=== PATIENT | female | born 1975 | race Caucasian/White ===

== ENCOUNTER 2018-05-03 14:42 | Inpatient (IN) | payer OTHER ==
[~2018-05-03] VITALS: Ht 170.2 cm; Wt 54.4 kg
[2018-05-03] MEDS ORDERED: SODIUM CHLORIDE 0.9% 1,000 ML IV ONE (14:49)
[2018-05-03] MEDS ORDERED: ONDANSETRON 2MG/ML, 2ML IVPush ONE (15:00)
[2018-05-03] MEDS ORDERED: METOCLOPRAMIDE 5 MG/ML, 2ML ONE (15:00)
[2018-05-03] MEDS ORDERED: SODIUM CHLORIDE FLUSH 10ML SYR IVF ONE (15:00)
[2018-05-03] MEDS ORDERED: SODIUM CHLORIDE 0.9% 1,000ML IVBOLUS ONE (15:00)
[2018-05-03 15:50] LABS: ALANINE AMINOTRANSFERASE 19 U/L (12-78); ALBUMIN 2.3 g/dL (3.4-5.0); ANION GAP 11 mmol/L (5-15); CALCIUM 8.4 mg/dL (8.5-10.1); CHLORIDE 94 mmol/L (98-107); CREATININE 0.91 mg/dL (0.55-1.02)
[2018-05-03 15:52] LABS: ALKALINE PHOSPHATASE 292 U/L (45-117); BILIRUBIN,TOTAL 0.9 mg/dL (0.2-1.0); TOTAL PROTEIN 7.9 g/dL (6.4-8.2)
[2018-05-03 16:25] LABS: BASOPHILS % (AUTO) 0 % (0-1); EOSINOPHILS % (AUTO) 0 % (1-7); LYMPHOCYTES # (AUTO) 0.78 x10^3/uL (1-3.4); LYMPHOCYTES % (AUTO) 58 % (22-44); MD MORPH REVIEW ONLY; MEAN CORPUSCULAR HEMOGLOBIN 36.1 pg (27.0-34.8); MEAN CORPUSCULAR HGB CONC 35.4 g/dL (32.4-35.8); MEAN PLATELET VOLUME 8.7 fL (7.4-10.4); MONOCYTES # (AUTO) 0.11 x10^3/uL (0.2-0.8); MONOCYTES % (AUTO) 8 % (2-9); NEUTROPHILS # (AUTO) 0.45 x10^3/uL (1.8-6.8); NEUTROPHILS % (AUTO) 34 % (42-75); PLATELET COUNT 182 x10^3/uL (130-400); RED BLOOD COUNT 2.66 x10^6/uL (3.82-5.3); RED CELL DISTRIBUTION WIDTH 13.9 % (9.6-15.2)
[2018-05-03 16:28] LABS: ANISOCYTOSIS 1+
[2018-05-03 16:29] LABS: <PLATELET ESTIMATE> ADEQUATE; <PLT MORPHOLOGY> NORMAL PLT MORPH; TOXIC GRAN 1+
[2018-05-03] MEDS ORDERED: OMEP10CA4 PO (16:41)
[2018-05-03] MEDS ORDERED: PROM25TA10 PO (16:41)
[2018-05-03] MEDS ORDERED: OXYC1TAB7 PO (16:41)
[2018-05-03] MEDS ORDERED: ONDA4TAB10 PO (16:41)
[2018-05-03] MEDS ORDERED: HYDROcodone/APAP 5/325 TABLET PO PRN (17:00)
[2018-05-03] MEDS ORDERED: POLYETHYLENE GLYCOL 17 GM PACKET PO PRN (17:00)
[2018-05-03] MEDS ORDERED: DOCUSATE 100 MG CAPSULE PO PRN (17:00)
[2018-05-03] MEDS ORDERED: ACETAMINOPHEN 325 MG TABLET PO PRN (17:00)
[2018-05-03] MEDS ORDERED: ENALAPRILAT 1.25 MG/ML, 2ML IVPush PRN (17:00)
[2018-05-03] MEDS ORDERED: ONDANSETRON ODT 4 MG PO PRN (17:00)
[2018-05-03] MEDS ORDERED: METOCLOPRAMIDE 5 MG/ML, 2ML IVPush ONE (17:00)
[2018-05-03] MEDS ORDERED: BISACODYL 10 MG SUPP PR PRN (17:00)
[2018-05-03 17:28] LABS: INTERNATIONAL NORMALIZED RATIO 1.14 (0.93-1.1); PROTHROMBIN TIME 11.7 Seconds (9.6-11.5)
[2018-05-03] MEDS ORDERED: FAMOTIDINE 20 MG/2 ML ONE (17:59)
[2018-05-03] MEDS: NS + 20MEQ KCL 1,000 ML IV SCH (18:02)
[2018-05-03] MEDS: FAMOTIDINE 20 MG/2 ML IVPush SCH (18:07)
[2018-05-03 18:08] LABS: MICROSCOPIC INDICATED
[2018-05-03 18:09] LABS: CULTURE INDICATED? YES
[2018-05-03] MEDS: ENOXAPARIN 40 MG/0.4 ML SQ SCH (18:10)
[2018-05-03 18:11] VITALS: BP 126/91
[2018-05-03 19:54] VITALS: BP 130/91
[2018-05-03] MEDS: METOCLOPRAMIDE 5 MG/ML, 2ML IVPush PRN (20:49)
[2018-05-03] MEDS: PROMETHAZINE 25 MG/ML, 1ML IM PRN (22:52)
[2018-05-04 01:48] VITALS: BP 138/92
[2018-05-04] MEDS: ALUMINUM/MAG/SIMETHICONE 30 ML UDC PO PRN ×2 (02:09→15:15)
[2018-05-04] MEDS: PROMETHAZINE 25 MG/ML, 1ML IM PRN ×2 (02:10→07:50)
[2018-05-04] MEDS: NS + 20MEQ KCL 1,000 ML IV SCH ×3 (02:10→16:45)
[2018-05-04 06:20] LABS: MEAN CORPUSCULAR HEMOGLOBIN 35.5 pg (27.0-34.8); MEAN CORPUSCULAR HGB CONC 34.9 g/dL (32.4-35.8); MEAN CORPUSCULAR VOLUME 101.7 fL (80-100); MEAN PLATELET VOLUME 8.7 fL (7.4-10.4); PLATELET COUNT 174 x10^3/uL (130-400); RED BLOOD COUNT 2.26 x10^6/uL (3.82-5.3); RED CELL DISTRIBUTION WIDTH 13.7 % (9.6-15.2)
[2018-05-04 06:24] LABS: ALANINE AMINOTRANSFERASE 15 U/L (12-78); ANION GAP 11 mmol/L (5-15); CALCIUM 7.7 mg/dL (8.5-10.1); CHLORIDE 101 mmol/L (98-107)
[2018-05-04 06:27] LABS: ALKALINE PHOSPHATASE 226 U/L (45-117); BILIRUBIN,TOTAL 0.7 mg/dL (0.2-1.0); TOTAL PROTEIN 6.8 g/dL (6.4-8.2)
[2018-05-04 06:44] LABS: MD YES
[2018-05-04 06:56] LABS: ANISOCYTOSIS 1+; LYMPH#(MANUAL) 0.89 x10^3/uL (1-3.4); LYMPHS% (MANUAL) 59 % (22-44); MONOS% (MANUAL) 13 % (2-9); POLYCHROMASIA 1+; TOXIC GRAN 2+
[2018-05-04 06:58] LABS: <PLATELET ESTIMATE> ADEQUATE; <PLT MORPHOLOGY> NORMAL PLT MORPH; BAND#(MANUAL) 0.05 x10^3/uL; BANDS%(MANUAL) 3 % (0-7); SEG#(MANUAL) 0.38 x10^3/uL (1.8-6.8); SEGS% (MANUAL) 25 % (42-75)
[2018-05-04 07:46] VITALS: BP 120/87
[2018-05-04] MEDS: FAMOTIDINE 20 MG/2 ML IVPush SCH ×2 (07:49→21:15)
[2018-05-04] MEDS: TBO-FILGRASTIM 300 MCG/0.5 ML SQ SCH (08:19)
[2018-05-04] MEDS ORDERED: SUCRALFATE 1 GM/10 ML UDC PO PRN (11:00)
[2018-05-04] MEDS ORDERED: PROMETHAZINE 25MG TABLET PO PRN (11:00)
[2018-05-04 13:22] VITALS: BP 134/89
[2018-05-04] MEDS: ENOXAPARIN 40 MG/0.4 ML SQ SCH (16:37)
[2018-05-04] MEDS: METOCLOPRAMIDE 5 MG/ML, 2ML IVPush PRN (19:16)
[2018-05-04 19:18] VITALS: BP 121/79
[2018-05-05] VITALS (9 sets, daily range): BP systolic 122–134; BP diastolic 80–94
[2018-05-05 00:32] LABS: CLOSTRIDIUM DIFFICILE ANTIGEN NEGATIVE; CLOSTRIDIUM DIFFICILE TOXIN NEGATIVE (Negative)
[2018-05-05] MEDS: NS + 20MEQ KCL 1,000 ML IV SCH (01:20)
[2018-05-05] MEDS: PROMETHAZINE 25 MG/ML, 1ML IM PRN (03:53)
[2018-05-05 05:56] LABS: MEAN CORPUSCULAR HEMOGLOBIN 36.4 pg (27.0-34.8); MEAN CORPUSCULAR HGB CONC 35.3 g/dL (32.4-35.8); MEAN CORPUSCULAR VOLUME 102.9 fL (80-100); PLATELET COUNT 183 x10^3/uL (130-400); RED BLOOD COUNT 2.19 x10^6/uL (3.82-5.3); RED CELL DISTRIBUTION WIDTH 14.2 % (9.6-15.2)
[2018-05-05 06:07] LABS: % IRON SATURATION 19 % (20-55); ANION GAP 10 mmol/L (5-15); CALCIUM 7.6 mg/dL (8.5-10.1); CHLORIDE 105 mmol/L (98-107); IRON LEVEL 29 mcg/dL (50-170); TOTAL IRON BINDING CAPACITY 150 mcg/dL (250-450)
[2018-05-05 06:11] LABS: TRANSFERRIN 119 mg/dL (200-360)
[2018-05-05 06:56] LABS: MD YES
[2018-05-05 06:57] LABS: BAND#(MANUAL) 0.71 x10^3/uL; BANDS%(MANUAL) 23 % (0-7); BASOS#(MANUAL) 0.03 x10^3/uL (0-0.1); BASOS% (MANUAL) 1 % (0-1); EOS#(MANUAL) 0.06 x10^3/uL (0.0-0.4); EOS% (MANUAL) 2 % (1-7); LYMPH#(MANUAL) 1.09 x10^3/uL (1-3.4); LYMPHS% (MANUAL) 35 % (22-44); METAMYELOCYTES# (MANUAL) 0.06 x10^3/uL (0-0); METAMYELOCYTES% (MANUAL) 2 % (0-1); MONOS#(MANUAL) 0.34 x10^3/uL (0.3-2.7); MONOS% (MANUAL) 11 % (2-9); SEG#(MANUAL) 0.81 x10^3/uL (1.8-6.8); SEGS% (MANUAL) 26 % (42-75); TOXIC GRAN 2+
[2018-05-05 06:58] LABS: ANISOCYTOSIS 1+; POLYCHROMASIA 1+
[2018-05-05 06:59] LABS: <PLATELET ESTIMATE> ADEQUATE; <PLT MORPHOLOGY> NORMAL PLT MORPH
[2018-05-05] MEDS: TBO-FILGRASTIM 300 MCG/0.5 ML SQ SCH (09:00)
[2018-05-05] MEDS ORDERED: HYDROCORTISONE 100 MG INJ. IVPush ONE (09:00)
[2018-05-05] MEDS: FAMOTIDINE 20 MG/2 ML IVPush SCH ×2 (09:32→19:54)
[2018-05-05] MEDS: ENOXAPARIN 40 MG/0.4 ML SQ SCH (18:00)
[2018-05-05] MEDS: HEPARIN 5,000 UNITS/ML, 1ML SQ SCH (19:00)
[2018-05-05] MEDS: ALUMINUM/MAG/SIMETHICONE 30 ML UDC PO PRN (19:37)
[2018-05-05] MEDS: LACTOBACILLUS CHEW TABLET PO SCH (19:54)
[2018-05-06 02:05] VITALS: BP 130/91
[2018-05-06 04:21] LABS: BASOPHILS # (AUTO) 0.02 x10^3/uL (0-0.1); BASOPHILS % (AUTO) 0 % (0-1); EOSINOPHILS # (AUTO) 0.01 x10^3/uL (0-0.4); EOSINOPHILS % (AUTO) 0 % (1-7); LYMPHOCYTES # (AUTO) 1.34 x10^3/uL (1-3.4); LYMPHOCYTES % (AUTO) 28 % (22-44); MD NO; MEAN CORPUSCULAR HEMOGLOBIN 32.7 pg (27.0-34.8); MEAN CORPUSCULAR HGB CONC 33.1 g/dL (32.4-35.8); MEAN CORPUSCULAR VOLUME 98.9 fL (80-100); MEAN PLATELET VOLUME 8.7 fL (7.4-10.4); MONOCYTES # (AUTO) 0.39 x10^3/uL (0.2-0.8); MONOCYTES % (AUTO) 8 % (2-9); NEUTROPHILS # (AUTO) 3.04 x10^3/uL (1.8-6.8); NEUTROPHILS % (AUTO) 63 % (42-75); PLATELET COUNT 221 x10^3/uL (130-400); RED BLOOD COUNT 3.45 x10^6/uL (3.82-5.3); RED CELL DISTRIBUTION WIDTH 15.9 % (9.6-15.2)
[2018-05-06 06:28] VITALS: BP 109/76
[2018-05-06] MEDS: HEPARIN 5,000 UNITS/ML, 1ML SQ SCH ×2 (07:00→17:03)
[2018-05-06] MEDS ORDERED: CEFTRIAXONE 1,000 MG IM SCH (08:00)
[2018-05-06] MEDS: FAMOTIDINE 20 MG/2 ML IVPush SCH (10:06)
[2018-05-06] MEDS: TBO-FILGRASTIM 300 MCG/0.5 ML SQ SCH (10:07)
[2018-05-06] MEDS: CEFTRIAXONE 1,000 MG in SODIUM CHLORIDE 0.9% 50 ML IV SCH (10:07)
[2018-05-06] MEDS: LACTOBACILLUS CHEW TABLET PO SCH ×3 (10:08→20:09)
[2018-05-06 10:54] LABS: ANION GAP 12 mmol/L (5-15); CALCIUM 8.2 mg/dL (8.5-10.1); CHLORIDE 100 mmol/L (98-107); CREATININE 0.57 mg/dL (0.55-1.02)
[2018-05-06 12:00] VITALS: BP 134/87
[2018-05-06] MEDS ORDERED: TPN PER PHARMACY MC PRN (12:00)
[2018-05-06] MEDS ORDERED: NS + 40MEQ KCL 1,000 ML IV SCH (17:00)
[2018-05-06] MEDS ORDERED: DEXTROSE 10% 500 ML IV PRN (17:00)
[2018-05-06] MEDS ORDERED: AMINO ACID 10% IV SCH ×2 (17:00)
[2018-05-06] MEDS ORDERED: FAT EMUL IV SCH ×2 (17:00)
[2018-05-06] MEDS ORDERED: DEXTROSE 50%, 50ML SYRINGE IVPush PRN (17:00)
[2018-05-06] MEDS ORDERED: SODIUM CHLORIDE 0.9% 1,000 ML IV SCH (17:00)
[2018-05-06] MEDS ORDERED: [UNRECOGNIZED DRUG - OTHER] IV SCH (17:00)
[2018-05-06] MEDS ORDERED: DEXTROSE 70% IV SCH ×2 (17:00)
[2018-05-06] MEDS ORDERED: [UNRECOGNIZED DRUG - OTHER] IV SCH (17:00)
[2018-05-06] MEDS ORDERED: SMOF TPN IV SCH ×2 (17:00)
[2018-05-06] MEDS: FILTER, DISP 1.2 MICRON FOR TPN/PVN IV PRN (17:57)
[2018-05-06] MEDS ORDERED: NS + 20MEQ KCL 1,000 ML IV SCH (18:00)
[2018-05-06] MEDS: INSULIN REGULAR LOW DOSE Q6H X 48HRS SQ-INSULIN SCH (20:09)
[2018-05-06 20:22] VITALS: BP 121/83
[2018-05-07 01:27] VITALS: BP 128/88
[2018-05-07] MEDS: INSULIN REGULAR LOW DOSE Q6H X 48HRS SQ-INSULIN SCH ×4 (02:56→21:21)
[2018-05-07] MEDS ORDERED: LORazepam 2 MG/ML, 1ML IVPush ONE (03:00)
[2018-05-07] MEDS ORDERED: LORazepam 2 MG/ML, 1ML ONE (03:05)
[2018-05-07 04:23] LABS: MEAN CORPUSCULAR HEMOGLOBIN 33.9 pg (27.0-34.8); MEAN CORPUSCULAR HGB CONC 33.8 g/dL (32.4-35.8); MEAN CORPUSCULAR VOLUME 100.4 fL (80-100); MEAN PLATELET VOLUME 8.9 fL (7.4-10.4); PLATELET COUNT 232 x10^3/uL (130-400); RED BLOOD COUNT 3.47 x10^6/uL (3.82-5.3); RED CELL DISTRIBUTION WIDTH 15.8 % (9.6-15.2)
[2018-05-07 04:24] LABS: ANION GAP 8 mmol/L (5-15); CHLORIDE 99 mmol/L (98-107)
[2018-05-07 04:28] LABS: ALANINE AMINOTRANSFERASE 12 U/L (12-78); BILIRUBIN,TOTAL 0.7 mg/dL (0.2-1.0); CALCIUM 8.2 mg/dL (8.5-10.1); CREATININE 0.72 mg/dL (0.55-1.02)
[2018-05-07 04:29] LABS: ALKALINE PHOSPHATASE 215 U/L (45-117); PREALBUMIN 9.6 mg/dL (20.0-40.0); TOTAL PROTEIN 6.8 g/dL (6.4-8.2); TRIGLYCERIDES 187 mg/dL (50-200)
[2018-05-07 04:42] LABS: MD YES
[2018-05-07 04:44] LABS: BAND#(MANUAL) 0.93 x10^3/uL; BANDS%(MANUAL) 9 % (0-7); LYMPH#(MANUAL) 1.44 x10^3/uL (1-3.4); LYMPHS% (MANUAL) 14 % (22-44); MONOS#(MANUAL) 0.41 x10^3/uL (0.3-2.7); MONOS% (MANUAL) 4 % (2-9); SEG#(MANUAL) 7.52 x10^3/uL (1.8-6.8); SEGS% (MANUAL) 73 % (42-75)
[2018-05-07 04:45] LABS: <PLATELET ESTIMATE> ADEQUATE; <PLT MORPHOLOGY> NORMAL PLT MORPH; ANISOCYTOSIS 1+; POLYCHROMASIA 1+; TOXIC GRAN 2+
[2018-05-07] MEDS: HEPARIN 5,000 UNITS/ML, 1ML SQ SCH ×2 (07:00→19:00)
[2018-05-07 07:10] VITALS: BP 117/80
[2018-05-07] MEDS: CEFTRIAXONE 1,000 MG in SODIUM CHLORIDE 0.9% 50 ML IV SCH (08:24)
[2018-05-07] MEDS: LACTOBACILLUS CHEW TABLET PO SCH ×3 (08:24→20:33)
[2018-05-07] MEDS ORDERED: MAGNESIUM SULFATE PMX 2GM/50ML 50 ML IV ONE (08:30)
[2018-05-07 13:04] VITALS: BP 118/82
[2018-05-07] MEDS: LORazepam 2 MG/ML, 1ML IVPush PRN ×2 (13:31→21:29)
[2018-05-07 14:09] LABS: MEAN CORPUSCULAR HEMOGLOBIN 34.5 pg (27.0-34.8); MEAN CORPUSCULAR HGB CONC 34.4 g/dL (32.4-35.8); MEAN CORPUSCULAR VOLUME 100.1 fL (80-100); MEAN PLATELET VOLUME 8.9 fL (7.4-10.4); PLATELET COUNT 258 x10^3/uL (130-400); RED BLOOD COUNT 3.56 x10^6/uL (3.82-5.3); RED CELL DISTRIBUTION WIDTH 15.9 % (9.6-15.2)
[2018-05-07 14:11] LABS: MD YES
[2018-05-07 15:38] LABS: BAND#(MANUAL) 1.27 x10^3/uL; BANDS%(MANUAL) 13 % (0-7); EOS% (MANUAL) 1 % (1-7); LYMPH#(MANUAL) 1.18 x10^3/uL (1-3.4); LYMPHS% (MANUAL) 12 % (22-44); METAMYELOCYTES% (MANUAL) 2 % (0-1); MONOS#(MANUAL) 0.88 x10^3/uL (0.3-2.7); MONOS% (MANUAL) 9 % (2-9); MYELOCYTES% (MANUAL) 2 % (0-0); SEG#(MANUAL) 5.98 x10^3/uL (1.8-6.8); SEGS% (MANUAL) 61 % (42-75)
[2018-05-07 15:39] LABS: <PLATELET ESTIMATE> ADEQUATE; <PLT MORPHOLOGY> NORMAL PLT MORPH; ANISOCYTOSIS 1+; PMNS WITH VACUOLES 1+; TOXIC GRAN 1+
[2018-05-07] MEDS: FILTER, DISP 1.2 MICRON FOR TPN/PVN IV PRN (15:41)
[2018-05-07] MEDS ORDERED: DEXTROSE 70% IV SCH (17:00)
[2018-05-07] MEDS ORDERED: [UNRECOGNIZED DRUG - OTHER] IV SCH (17:00)
[2018-05-07] MEDS ORDERED: SMOF TPN IV SCH (17:00)
[2018-05-07] MEDS ORDERED: FAT EMUL IV SCH (17:00)
[2018-05-07] MEDS ORDERED: AMINO ACID 10% IV SCH (17:00)
[2018-05-07 18:45] VITALS: BP 123/87
[2018-05-07 20:00] VITALS: BP 118/62
[2018-05-07] MEDS: PROMETHAZINE 25 MG/ML, 1ML IM PRN (23:53)
[2018-05-08] MEDS: INSULIN REGULAR LOW DOSE Q6H X 48HRS SQ-INSULIN SCH ×4 (03:13→21:00)
[2018-05-08 03:15] VITALS: BP 121/84
[2018-05-08 06:46] LABS: ANION GAP 6 mmol/L (5-15); CALCIUM 8.5 mg/dL (8.5-10.1); CHLORIDE 95 mmol/L (98-107)
[2018-05-08 06:47] LABS: CREATININE 0.89 mg/dL (0.55-1.02)
[2018-05-08] MEDS: HEPARIN 5,000 UNITS/ML, 1ML SQ SCH ×2 (07:00→19:37)
[2018-05-08 07:09] VITALS: BP 113/79
[2018-05-08] MEDS: LACTOBACILLUS CHEW TABLET PO SCH ×3 (08:38→20:30)
[2018-05-08] MEDS: CEFTRIAXONE 1,000 MG in SODIUM CHLORIDE 0.9% 50 ML IV SCH (08:38)
[2018-05-08] MEDS: SODIUM CHLORIDE 0.9% 1,000 ML IV SCH ×2 (08:38→19:03)
[2018-05-08 11:17] LABS: MEAN CORPUSCULAR HEMOGLOBIN 33.9 pg (27.0-34.8); MEAN CORPUSCULAR HGB CONC 33.8 g/dL (32.4-35.8); MEAN PLATELET VOLUME 9.7 fL (7.4-10.4); PLATELET COUNT 290 x10^3/uL (130-400); RED BLOOD COUNT 3.69 x10^6/uL (3.82-5.3); RED CELL DISTRIBUTION WIDTH 15.6 % (9.6-15.2)
[2018-05-08 12:07] LABS: MD YES
[2018-05-08 12:14] LABS: ANISOCYTOSIS 1+; BAND#(MANUAL) 1.17 x10^3/uL; BANDS%(MANUAL) 11 % (0-7); LYMPH#(MANUAL) 2.23 x10^3/uL (1-3.4); LYMPHS% (MANUAL) 21 % (22-44); METAMYELOCYTES# (MANUAL) 0.11 x10^3/uL (0-0); METAMYELOCYTES% (MANUAL) 1 % (0-1); MONOS#(MANUAL) 0.95 x10^3/uL (0.3-2.7); MONOS% (MANUAL) 9 % (2-9); SEG#(MANUAL) 6.15 x10^3/uL (1.8-6.8); SEGS% (MANUAL) 58 % (42-75); TOXIC GRAN 1+
[2018-05-08 12:15] LABS: <PLATELET ESTIMATE> ADEQUATE; <PLT MORPHOLOGY> NORMAL PLT MORPH
[2018-05-08 12:57] VITALS: BP 106/74
[2018-05-08] MEDS: MORPHINE SULFATE 4 MG/ML, 1ML IVPush PRN (15:39)
[2018-05-08] MEDS ORDERED: [UNRECOGNIZED DRUG - OTHER] IV SCH (17:00)
[2018-05-08] MEDS ORDERED: FAT EMUL IV SCH (17:00)
[2018-05-08] MEDS ORDERED: AMINO ACID 10% IV SCH (17:00)
[2018-05-08] MEDS ORDERED: DEXTROSE 70% IV SCH (17:00)
[2018-05-08] MEDS ORDERED: SMOF TPN IV SCH (17:00)
[2018-05-08] MEDS: FILTER, DISP 1.2 MICRON FOR TPN/PVN IV PRN (17:25)
[2018-05-08] MEDS: PROMETHAZINE 25 MG/ML, 1ML IM PRN (17:56)
[2018-05-08 19:07] VITALS: BP 105/75
[2018-05-09 00:33] VITALS: BP 121/80
[2018-05-09] MEDS: MORPHINE SULFATE 4 MG/ML, 1ML IVPush PRN ×4 (02:48→23:50)
[2018-05-09] MEDS: SODIUM CHLORIDE 0.9% 1,000 ML IV SCH ×2 (05:00→15:19)
[2018-05-09 05:31] LABS: ANION GAP 8 mmol/L (5-15); CALCIUM 8.1 mg/dL (8.5-10.1); CHLORIDE 99 mmol/L (98-107)
[2018-05-09 05:33] LABS: CREATININE 0.65 mg/dL (0.55-1.02)
[2018-05-09] MEDS: HEPARIN 5,000 UNITS/ML, 1ML SQ SCH ×2 (07:00→19:00)
[2018-05-09 07:25] VITALS: BP 112/81
[2018-05-09] MEDS: LACTOBACILLUS CHEW TABLET PO SCH ×3 (09:00→21:00)
[2018-05-09] MEDS: CEFTRIAXONE 1,000 MG in SODIUM CHLORIDE 0.9% 50 ML IV SCH (09:27)
[2018-05-09 12:25] LABS: BASOPHILS # (AUTO) 0.02 x10^3/uL (0-0.1); BASOPHILS % (AUTO) 0 % (0-1); EOSINOPHILS # (AUTO) 0.02 x10^3/uL (0-0.4); EOSINOPHILS % (AUTO) 0 % (1-7); LYMPHOCYTES # (AUTO) 0.94 x10^3/uL (1-3.4); LYMPHOCYTES % (AUTO) 9 % (22-44); MD NO; MEAN CORPUSCULAR HEMOGLOBIN 33.6 pg (27.0-34.8); MEAN CORPUSCULAR HGB CONC 33.6 g/dL (32.4-35.8); MEAN CORPUSCULAR VOLUME 99.9 fL (80-100); MEAN PLATELET VOLUME 8.6 fL (7.4-10.4); MONOCYTES # (AUTO) 0.57 x10^3/uL (0.2-0.8); MONOCYTES % (AUTO) 5 % (2-9); NEUTROPHILS # (AUTO) 9.57 x10^3/uL (1.8-6.8); NEUTROPHILS % (AUTO) 86 % (42-75); PLATELET COUNT 272 x10^3/uL (130-400); RED BLOOD COUNT 3.27 x10^6/uL (3.82-5.3); RED CELL DISTRIBUTION WIDTH 15.7 % (9.6-15.2)
[2018-05-09 12:32] VITALS: BP 116/82
[2018-05-09] MEDS ORDERED: SMOF TPN IV SCH (17:00)
[2018-05-09] MEDS ORDERED: AMINO ACID 10% IV SCH (17:00)
[2018-05-09] MEDS ORDERED: DEXTROSE 70% IV SCH (17:00)
[2018-05-09] MEDS ORDERED: [UNRECOGNIZED DRUG - OTHER] IV SCH (17:00)
[2018-05-09] MEDS ORDERED: FAT EMUL IV SCH (17:00)
[2018-05-09] MEDS: FILTER, DISP 1.2 MICRON FOR TPN/PVN IV PRN (17:07)
[2018-05-09] MEDS: INSULIN REGULAR LOW DOSE QDAY SQ-INSULIN SCH (21:00)
[2018-05-09 21:08] VITALS: BP 112/79
[2018-05-10] MEDS: SODIUM CHLORIDE 0.9% 1,000 ML IV SCH (01:30)
[2018-05-10 02:20] VITALS: BP 121/78
[2018-05-10] MEDS: LORazepam 2 MG/ML, 1ML IVPush PRN ×2 (03:40→22:15)
[2018-05-10] MEDS: MORPHINE SULFATE 4 MG/ML, 1ML IVPush PRN ×4 (05:33→19:45)
[2018-05-10] MEDS: PROMETHAZINE 25 MG/ML, 1ML IM PRN ×4 (05:34→22:15)
[2018-05-10 06:37] VITALS: BP 118/82
[2018-05-10] MEDS: HEPARIN 5,000 UNITS/ML, 1ML SQ SCH ×2 (07:00→19:00)
[2018-05-10] MEDS: LACTOBACILLUS CHEW TABLET PO SCH ×3 (09:00→21:00)
[2018-05-10] MEDS: CEFTRIAXONE 1,000 MG in SODIUM CHLORIDE 0.9% 50 ML IV SCH (09:43)
[2018-05-10 13:12] VITALS: BP 116/77
[2018-05-10] MEDS ORDERED: FILTER, DISP 1.2 MICRON FOR TPN/PVN IV PRN (15:30)
[2018-05-10] MEDS ORDERED: [UNRECOGNIZED DRUG - OTHER] IV SCH (17:00)
[2018-05-10] MEDS ORDERED: FAT EMUL IV SCH (17:00)
[2018-05-10] MEDS ORDERED: SMOF TPN IV SCH (17:00)
[2018-05-10] MEDS ORDERED: AMINO ACID 10% IV SCH (17:00)
[2018-05-10] MEDS ORDERED: DEXTROSE 70% IV SCH (17:00)
[2018-05-10 18:39] VITALS: BP 94/68
[2018-05-10] MEDS: INSULIN REGULAR LOW DOSE QDAY SQ-INSULIN SCH (21:00)
[2018-05-11 01:59] VITALS: BP 119/83
[2018-05-11] MEDS: MORPHINE SULFATE 4 MG/ML, 1ML IVPush PRN ×2 (02:05→07:49)
[2018-05-11] MEDS: HEPARIN 5,000 UNITS/ML, 1ML SQ SCH (07:09)
[2018-05-11] MEDS: LACTOBACILLUS CHEW TABLET PO SCH (07:44)
[2018-05-11] MEDS: CEFTRIAXONE 1,000 MG in SODIUM CHLORIDE 0.9% 50 ML IV SCH (07:46)
[2018-05-11 08:29] VITALS: BP 113/81
== END 2018-05-11 12:05 | disposition hospice, home (50) | DRG 808 ==
LOC: ED 16:48 → 3NW 16:49 → ED 17:10
PROVIDERS: ADMIT Hospitalist; ATTEND Hospitalist
PROC: 30233N1 Transfusion of Nonautologous Red Blood Cells into Peripheral Vein, Percutaneous Approach (ICD-10-PCS; principal; 2018-05-05)
PROC: 3E0336Z Introduction of Nutritional Substance into Peripheral Vein, Percutaneous Approach (ICD-10-PCS; 2018-05-07)
DX: D70.1 Agranulocytosis secondary to cancer chemotherapy (principal); E43 Unspecified severe protein-calorie malnutrition; C16.9 Malignant neoplasm of stomach, unspecified; N39.0 Urinary tract infection, site not specified; R18.8 Other ascites; C78.6 Secondary malignant neoplasm of retroperitoneum and peritoneum; Z68.1 Body mass index [BMI] 19.9 or less, adult; D64.81 Anemia due to antineoplastic chemotherapy; R11.14 Bilious vomiting; B96.20 Unspecified Escherichia coli [E. coli] as the cause of diseases classified elsewhere; T45.1X5A Adverse effect of antineoplastic and immunosuppressive drugs, initial encounter; Y92.89 Other specified places as the place of occurrence of the external cause; E87.6 Hypokalemia; F12.90 Cannabis use, unspecified, uncomplicated; I95.9 Hypotension, unspecified; F41.0 Panic disorder [episodic paroxysmal anxiety]; Z51.5 Encounter for palliative care; Z82.49 Family history of ischemic heart disease and other diseases of the circulatory system; Z83.3 Family history of diabetes mellitus; Z87.891 Personal history of nicotine dependence; Z90.49 Acquired absence of other specified parts of digestive tract
CPT/HCPCS: 36415; 74018; 74022; 99291; J3475; Q0169; S0028; 36430; 80048; 80053; 81001; 82728; 82962; 83540; 83550; 83605; 83690; 83735; 84100; 84134; 84466; 84478; 85025; 85610; 86850; 86900; 86923; 87040; 87077; 87086; 87186; 87324; 93005; 96361; 96374; 96375; G0378; J0610; J0696; J1815; J2405; J2550; J3480; J1447; J1720; J2060; J2765; J3420; J7030; P9016